=== PATIENT | male | born 1995 | race Caucasian/White ===

== ENCOUNTER 2016-08-18 17:50 | Emergency (ER) | payer OTHER ==
[2016-08-18] MEDS ORDERED: LIDOCAINE VISCOUS 2% 15 ML UDC MM STA (18:25)
[2016-08-18] MEDS ORDERED: ONDANSETRON ODT 4 MG TABLET TL STA (18:25)
[2016-08-18] MEDS ORDERED: MAG HYDROX/AL HYDROX/SIMETH 30 ML UDC PO STA (18:25)
[2016-08-18] MEDS ORDERED: LIDOCAINE VISCOUS 2% 15 ML UDC MM ONE (18:27)
[2016-08-18] MEDS ORDERED: MAG HYDROX/AL HYDROX/SIMETH 30 ML UDC ONE (18:27)
[2016-08-18] MEDS ORDERED: ONDANSETRON ODT 4 MG TABLET ONE (18:27)
[2016-08-18] MEDS ORDERED: ACETAMINOPHEN 325 MG TABLET PO STA (19:00)
[2016-08-18] MEDS ORDERED: FAMOTIDINE 20 MG TABLET PO STA (19:00)
[2016-08-18] MEDS ORDERED: FAMOTIDINE 20 MG TABLET ONE (19:11)
[2016-08-18] MEDS ORDERED: ACETAMINOPHEN 325 MG TABLET PO ONE (19:11)
== END 2016-08-18 19:16 | disposition home or self-care (01) ==
DX: K29.00 Acute gastritis without bleeding (principal); F17.200 Nicotine dependence, unspecified, uncomplicated
CPT/HCPCS: 99283; A9270; Q0162

== ENCOUNTER 2016-10-15 13:50 | Day surgery (SDC) | payer OTHER ==
[2016-10-15] MEDS ORDERED: LACTATED RINGERS 1,000 ML IV ONE (14:24)
[2016-10-15] MEDS ORDERED: LIDOCAINE-MPF 2% 5 ML VIAL IM ONE (16:15)
[2016-10-15] MEDS ORDERED: PROPOFOL 200 MG/20 ML VIAL IVP ONE (16:15)
[2016-10-15 17:21] VITALS: BP 112/76
--- NOTE | 2016-10-17 07:18 | PROCEDURE REPORT ---
DATE OF PROCEDURE: 10/15/2016 00:00:00 PROCEDURE PERFORMED: Esophagogastroduodenoscopy with biopsy. ENDOSCOPIST: Maria Victoria Alcantar M.D. PRIMARY CARE: [facility] INDICATION FOR THE PROCEDURE: Abdominal pain, unresponsive to medications. PREMEDICATIONS: Monitored anesthesia care per Anesthesia. DESCRIPTION OF PROCEDURE: After informed consent was obtained, the patient was placed in the left la teral decubitus position. The upper scope was placed into the oropharynx and with the patient's help was swallowed into the esophagus. The esophagus, stomach, and duodenum were carefully examined. On withdrawal, a retroflexed view of the GE junction was performed. The scope was removed. The patien t tolerated the procedure well. ESTIMATED BLOOD LOSS: None. COMPLICATIONS: None. FINDINGS 1. Normal esophagus. 2. Stomach with antral erythema, biopsied to rule out Helicobacter. 3. Duodenal bulb with multiple erosions, biopsied to rule out unusual cause. PLAN: I will go ahead and start omeprazole and [facility]. I will await biopsies. Hopefull y, with a longer course of therapy, he will begin to respond what is probably garden variety peptic d isease. JOB #: [id number] EXT JOB #:[id number]
== END 2016-10-15 13:51 | disposition home or self-care (01) ==
LOC: SDS 13:50
PROVIDERS: ATTEND Internal Medicine Gastroenterology
PROC: 0DB68ZX Excision of Stomach, Via Natural or Artificial Opening Endoscopic, Diagnostic (ICD-10-PCS; 2016-10-15)
PROC: 0DB98ZX Excision of Duodenum, Via Natural or Artificial Opening Endoscopic, Diagnostic (ICD-10-PCS; principal; 2016-10-15 15:30)
DX: R10.9 Unspecified abdominal pain (principal); K26.9 Duodenal ulcer, unspecified as acute or chronic, without hemorrhage or perforation; K31.89 Other diseases of stomach and duodenum
CPT/HCPCS: 43239; J7120; 88305

== ENCOUNTER 2017-04-11 05:17 | Emergency (ER) | payer OTHER ==
[2017-04-11 06:01] LABS: BASOPHILS % (AUTO) 0.5 %; EOSINOPHILS # (AUTO) 0.1 10^3/uL (0.0-0.7); EOSINOPHILS % (AUTO) 0.9 %; HGB - HEMOGLOBIN 15.9 g/dL (14.0-18.0); LYMPHOCYTES # (AUTO) 2.8 10^3/uL (1.5-3.5); LYMPHOCYTES % (AUTO) 31.9 %; MEAN CORPUSCULAR HEMOGLOBIN 30.3 pg (27.0-31.0); MEAN CORPUSCULAR HGB CONC 33.8 g/dL (32.0-36.0); MEAN CORPUSCULAR VOLUME 89.6 fL (80.0-94.0); MONOCYTES # (AUTO) 0.5 10^3/uL (0.0-1.0); MONOCYTES % (AUTO) 5.3 %; NEUTROPHILS # (AUTO) 5.4 10^3/uL (1.5-6.6); NEUTROPHILS % (AUTO) 61.4 %; NUCLEATED RED BLOOD CELLS AUTO 0.2 /100WBC; RED BLOOD COUNT 5.24 10^6/uL (4.70-6.10); RED CELL DISTRIBUTION WIDTH 13.1 % (12.0-15.0); UNCORRECTED WHITE BLOOD COUNT 8.8 x10^3/uL; WHITE BLOOD COUNT 8.8 x10^3/uL (4.8-10.8)
--- NOTE | 2017-04-11 06:02 | ED Physician Documentation ---
PD HPI ABD PAIN - Stated complaint Stated Complaint: ABD PX - Chief complaint Chief Complaint: Abd Pain - History obtained from History obtained from: Patient, Friend - History of Present Illness Timing - onset: Enter time (02:00), Today Timing - details: Abrupt onset Pain level now: 8 Quality: Pain Location: Epigastric Radiation: No: Chest, , Lower back, Left flank, Left shoulder, Right flank, Right shoulder, Upper back Improved by: Other (no ameliorating factors) Worsened by: Other (no exacerbating factors) Associated symptoms: Vomiting, Hematemesis. No: Fever, Nausea, Diarrhea, Constipation, Melena, Hematochezia, Chest pain Similar symptoms before: No diagnosis, Work up / diagnostics (CT A/P, EGD) Recently seen: Not recently seen - Additional information Additional information: awoke 2 am with abdominal pain and hematemesis. drank alcohol last night but denies heavy or regular alcohol use. also denies heavy or regular NSAID use. similar previous episodes have led to significant testing which revealed duodenal bulb erosions Review of Systems Constitutional: denies: Fever Cardiac: reports: Reviewed and negative Respiratory: reports: Reviewed and negative GI: reports: Abdominal Pain, Vomiting, Hematemesis. denies: Nausea PD PAST MEDICAL HISTORY - Past Medical History Past Medical History: Yes Cardiovascular: None Respiratory: None Endocrine/Autoimmune: None GI: Other : None HEENT: None Psych: None Musculoskeletal: None Derm: None - Past Surgical History Past Surgical History: No - Present Medications Home Medications: Ambulatory Orders Medication Instructions Recorded Confirmed Lidocaine Viscous 2% [Xylocaine 15 ml PO Q6HR PRN #1 bottle 04/11/17 Viscous 2%] Sucralfate [Carafate] 1 gm PO QID #100 tablet 04/11/17 - Allergies Allergies/Adverse Reactions: Allergies Allergy/AdvReac Type Severity Reaction Status Date / Time No Known Drug Allergies Allergy Verified 08/18/16 17:58 - Social History Does the pt smoke?: Yes Smoking Status: Current some day smoker Does the pt drink ETOH?: No Does the pt have substance abuse?: No - Immunizations Immunizations are current?: Yes PD ED PE NORMAL - Vitals Vital signs reviewed: Yes - General General: Alert and oriented X 3, Well developed/nourished, Other (appears to be in mild-moderate painful distress) - HEENT HEENT: Moist mucous membranes - Cardiac Cardiac: RRR, No murmur - Respiratory Respiratory: No respiratory distress, Clear bilaterally - Abdomen Abdomen: Soft, Non tender, Non distended - Back Back: No CVA TTP - Derm Derm: Normal color, Warm and dry Results - Vitals Vitals: Vital Signs - 24 hr 04/11/17 04/11/17 04/11/17 05:19 06:06 06:30 Temperature 36.4 C L Heart Rate 100 95 93 Respiratory 18 22 Rate Blood Pressure 142/92 H 122/81 H 116/55 L O2 Saturation 96 99 98 04/11/17 07:30 Temperature Heart Rate 86 Respiratory 18 Rate Blood Pressure 119/62 O2 Saturation 97 Oxygen O2 Source Room air - Labs Labs: Laboratory Tests 04/11/17 04/11/17 05:40 05:40 WBC 8.8 RBC 5.24 Hgb 15.9 Hct 47.0 MCV 89.6 MCH 30.3 MCHC 33.8 RDW 13.1 Plt Count 231 MPV 8.0 Neut # 5.4 Lymph # 2.8 [place] # 0.5 Eos # 0.1 Baso # 0.0 Absolute Nucleated RBC 0.02 Nucleated RBC % 0.2 Sodium 140 Potassium 3.8 Chloride 106 Carbon Dioxide 23 Anion Gap 11.0 BUN 11 Creatinine 0.8 Estimated GFR (MDRD) 122 Glucose 118 H Calcium 8.8 Total Bilirubin 0.6 AST 41 ALT 49 Alkaline Phosphatase 69 Total Protein 8.1 Albumin 4.6 Globulin 3.5 Albumin/Globulin Ratio 1.3 Lipase 33 - Rads (name of study) acute abd. xrays Radiology: Prelim report reviewed, See rad report PD MEDICAL DECISION MAKING - ED course Complexity details: reviewed results, re-evaluated patient, considered differential, d/w patient ED course: no emesis during ED stay and asleep in NAD on reevaluation after IV morphine. he does c/o ongoing pain when woken, though. recommended that he resume omeprazole, and add carafate. viscous lidocaine also provided in ED and rx Departure - Departure Disposition: 01 Home, Self Care Clinical Impression: Gastritis Qualifiers: Gastritis type: unspecified gastritis Chronicity: acute Gastritis bleeding: with bleeding Qualified Code(s): K29.01 - Acute gastritis with bleeding Condition: Good Instructions: ED PUD Vs Gastritis Follow-Up: [facility]ev[facility] [Provider Group] Prescriptions: Lidocaine Viscous 2% [Xylocaine Viscous 2%] 15 ml PO Q6HR PRN #1 bottle PRN Reason: Abdominal Pain Sucralfate [Carafate] 1 gm PO QID #100 tablet Forms: Activity restrictions Discharge Date/Time: 04/11/17 08:10
[2017-04-11 06:09] LABS: ALBUMIN/GLOBULIN RATIO 1.3 (1.0-2.2); BILIRUBIN,TOTAL 0.6 mg/dL (0.2-1.0); CALCIUM 8.8 mg/dL (8.5-10.3); CREATININE 0.8 mg/dL (0.6-1.2); POTASSIUM 3.8 mmol/L (3.5-5.0); TOTAL PROTEIN 8.1 g/dL (6.7-8.2)
[2017-04-11] MEDS ORDERED: MORPHINE 10 MG/ML VIAL IVP STA (06:25)
--- NOTE | 2017-04-11 07:12 | XRAY Preliminary Report ---
Exam: XR ABDOMEN ACUTE IMPRESSION: Normal abdominal series (including 1-view chest). [facility] SITE ID: [id number]
--- NOTE | 2017-04-11 07:14 | XRAY Report ---
EXAM: ABDOMINAL SERIES AND PA CHEST EXAM DATE: 04/11/2017 07:04 AM. CLINICAL HISTORY: Abdominal pain, hematemesis. COMPARISON: None. TECHNIQUE: 2 views abdomen and 1 view chest. FINDINGS: CHEST: Lungs/Pleura: No focal opacities. No effusion or pneumothorax. Mediastinum: Within exam limitations, cardiomediastinal contour is normal. ABDOMEN: Bowel Gas Pattern: Within normal limits. No dilated loops or abnormal fluid levels. Free Air: None. Other: None. IMPRESSION: Normal abdominal series (including 1-view chest). [facility] Referring Provider Line: [phone] SITE ID: [id number]
[2017-04-11] MEDS ORDERED: SUCRALFATE 1 GM/10 ML UDC PO STA (07:36)
[2017-04-11] MEDS ORDERED: LIDOCAINE VISCOUS 2% 15 ML UDC MM STA (07:37)
[2017-04-11 08:10] VITALS: BP 119/62
== END 2017-04-11 08:10 | disposition home or self-care (01) ==
LOC: ED 05:17
DX: K29.01 Acute gastritis with bleeding (principal); Z87.11 Personal history of peptic ulcer disease; F17.200 Nicotine dependence, unspecified, uncomplicated
CPT/HCPCS: 36415; 74022; 80053; 83690; 85025; 96374; 99283; A9270

== ENCOUNTER 2017-07-25 07:46 | Outpatient (CLI) | payer OTHER ==
--- NOTE | 2017-07-27 12:30 | MRI Report ---
EXAM: RIGHT CALF/TIBIA MRI WITHOUT CONTRAST EXAM DATE: 07/25/2017 09:28 AM. CLINICAL HISTORY: Unspecified enthesopathy, lower limb, excluding FO. Runner with vergara pain. COMPARISON: None. TECHNIQUE: Multiplanar, multisequence T1-weighted and fluid-sensitive sequences of the calf/tibia wit hout contrast. Other: None. FINDINGS: Bones: No fractures or subluxations. No marrow edema. No bone lesions. Joint Spaces: Visualized portions of the ankle and knee joints are unremarkable. Tendons: Where visualized, the Achilles and plantaris tendons are intact. Musculature: No edema or fatty atrophy. Other: The subcutaneous tissues are unremarkable. IMPRESSION: No MRI abnormalities in the calf/tibia. In particular, no stress reaction or fracture in the tibia. [facility] MUSCULOSKELETAL RADIOLOGY SECTION Referring Provider Line: [phone] SITE ID: [id number]
--- NOTE | 2017-07-28 12:25 | MRI Preliminary Report ---
Exam: MRI LOWER LEG (TIB-FIB) LT W/O IMPRESSION: Some periosteal edema seen only on the T2-weighted sequence, not readily appreciated on t he T1-weighted sequence. This is seen at the anterior tibial region, there is no involvement of the c ortex, no medullary edema or fracture lines. This corresponds to MRI grade 2 medial tibial stress syn drome. [facility] MUSCULOSKELETAL RADIOLOGY SECTION SITE ID: [id number]
--- NOTE | 2017-07-28 12:34 | MRI Report ---
EXAM: LEFT CALF/TIBIA MRI WITHOUT CONTRAST EXAM DATE: 07/25/2017 09:28 AM. CLINICAL HISTORY: Unspecified enthesopathy, lower limb, excluding foot. COMPARISON: None. TECHNIQUE: Multiplanar, multisequence T1-weighted and fluid-sensitive sequences of the calf/tibia wit hout contrast. Other: None. FINDINGS: Bones: In the area of the patient's concern, there is some periosteal edema only seen on the T2-weigh harvey sequence. This is not readily appreciated on the T1-weighted sequence. This is seen at the anteri or tibia. No cortical edema, no medullary edema. No fracture lines. Series 1101 image 30, series 901 image 10. Joint Spaces: Visualized portions of the ankle and knee joints are unremarkable. Tendons: Where visualized, the Achilles and plantaris tendons are intact. Musculature: No edema or fatty atrophy. Other: The subcutaneous tissues are unremarkable. IMPRESSION: Some periosteal edema is seen only on the T2-weighted sequence, not readily appreciated o n the T1-weighted sequence. This is seen at the anterior tibial region, there is no involvement of th e cortex, no medullary edema or fracture lines. This corresponds to MRI grade 2 medial tibial stress syndrome. [facility] MUSCULOSKELETAL RADIOLOGY SECTION Referring Provider Line: [phone] SITE ID: [id number]
== END 2017-07-25 07:47 | disposition home or self-care (01) ==
LOC: DI 07:46
PROVIDERS: ATTEND Family Medicine
DX: M76.9 Unspecified enthesopathy, lower limb, excluding foot (principal); S86.892A Other injury of other muscle(s) and tendon(s) at lower leg level, left leg, initial encounter; S86.891A Other injury of other muscle(s) and tendon(s) at lower leg level, right leg, initial encounter